=== PATIENT | female | born 1935 | race Caucasian/White ===

== ENCOUNTER 2018-09-04 20:09 | Emergency (ER) | payer OTHER, MEDICARE ==
[2018-09-04 20:27] VITALS: BP 168/82; PULSE 89; TEMP 97.8; BMI 27.4
--- NOTE | 2018-09-04 20:57 | PDOC ---
Attending Attestation - HPI HPI: This patient is an 83 year old female with PMHx of DMII, hypothyroidism, who presents to the ED for choking sensation in throat. Patient states that she was eating leftover turkey pot pie when she felt something lodged in her throat. She states that it occasionally moves and she cant breathe. She states that she is able to tolerate drinking water. 09/04/18 22:03 - Physicial Exam PE: GENERAL: Awake, alert, and fully oriented, in no acute distress HEAD: No signs of trauma EYES: PERRLA, EOMI, sclera anicteric, conjunctiva clear ENT: Auricles normal inspection, hearing grossly normal, nares patent, oropharynx clear without exudates, airway patent, no evidence of foreign object. Moist mucosa NECK: Normal ROM, supple, no lymphadenopathy, JVD, or masses LUNGS: Breath sounds equal, clear to auscultation bilaterally. No wheezes, and no crackles HEART: Regular rate and rhythm, normal S1 and S2, no murmurs, rubs or gallops NEUROLOGICAL: Cranial nerves II through XII grossly intact. Normal speech, normal gait <Jeanette Maya - Last Filed: 09/04/18 22:06> - Resident Resident Name: Den Sharp - Medical Decision Making 09/04/18 22:29 Pt presents to the ED complaining of a foreign body sensation after eating turkey pot pie. States that she has intermittent difficulty breathing, but no difficulty swallowing. Differential includes throat irritation, less likely foreign body, less likely epiglottitis. Will check CT neck to rule out foreign body or epiglottitis. <Rachelle Patel - Last Filed: 09/04/18 22:34> Attestations - Attestations 09/04/18 22:07 Documentation prepared by Jeanette Maya, acting as medical screener for Rachelle Patel MD. <Jeanette Maya - Last Filed: 09/04/18 22:06>
[2018-09-04] MEDS ORDERED: TETRACAINE/BENZOCAINE/BUTAMBEN 20 GM SPR TP ONE (20:59)
--- NOTE | 2018-09-04 21:29 | PDOC ---
History of Present Illness - General Chief Complaint: Choking Sensation Stated Complaint: CHOKING FEELING Time Seen by Provider: 09/04/18 20:48 - History of Present Illness Initial Comments: 09/04/18 21:29 The patient is an 83 year old female with a history of seizures who presents for evaluation of a choking sensation. The patient reports that she was eating left over turkey pot pie from a restaurant when she experienced a choking sensation and a sensation that she could not breath prompting her presentation to the ED for further evaluation. She notes that she feels that there is something moving in her throat that occasionally lodges itself in her airway and she can't breath during those moments. She states that she drank water without difficulty, but notes minimal improvement in her symptoms. She otherwise denies fevers, chills, SOB, chest pain, nausea, vomiting, abdominal pain, or changes with urination or bowel movements. Past History - Past Medical History Allergies/Adverse Reactions: Allergies Allergy/AdvReac Type Severity Reaction Status Date / Time bee venom protein (honey bee) Allergy Verified 09/04/18 20:27 Sulfa (Sulfonamide Allergy Verified 09/04/18 20:27 Antibiotics) COPD: No Seizures: Yes - Suicide/Smoking/Psychosocial Hx Smoking History: Former smoker Have you smoked in the past 12 months: No If you are a former smoker, when did you quit?: 40 years ago Information on smoking cessation initiated: No Review of Systems - Review of Systems Comments:: 09/04/18 21:37 Constitutional: No fevers, chills, fatigue, malaise HEENT: Choking Sensation. No Rhinorrhea, nasal congestion, visual changes Cardiovascular: No chest pain, syncope, palpitations, lightheadedness Respiratory: No Cough, SOB, Hemoptysis, Gastrointestinal: No Abdominal pain, Nausea, Vomiting, Constipation, Diarrhea, Melena Genitourinary: No Dysuria, Frequency, Urgency, Hesitancy, Hematuria, Flank pain Musculoskeletal: No Myalgia, arthralgia Skin: No rashes, itching, bruising, pallor Neurologic: No Headache, Dizziness, Numbness, Weakness, or Tingling Psychiatric: No Hallucinations. No SI or HI *Physical Exam - Vital Signs Last Vital Signs Temp Pulse Resp BP Pulse Ox 97.8 F 89 18 168/82 95 09/04/18 20:23 09/04/18 20:23 09/04/18 20:23 09/04/18 20:23 09/04/18 20:23 - Physical Exam Comments: 09/04/18 21:37 General Appearance: Nourished. No Apparent Distress HEENT: No Pharyngeal Erythema, Tonsillar Exudate, Tonsillar Erythema, or notable foreign body in the pharynx. Neck: No Cervical Lymphadenopathy Respiratory/Chest: Lungs Clear, Normal Breath Sounds. No Crackles, Rales, Rhonchi, Wheezing Cardiovascular: Regular Rhythm, Regular Rate. No Murmur, Gallops, Rubs Gastrointestinal/Abdominal: Normal Bowel Sounds, Soft. No Guarding, Rebound, Tenderness Musculoskeletal: No CVA Tenderness Extremity: Normal Capillary Refill Integumentary: Normal Color, Dry, Warm Neurologic: Fully Oriented, Alert, Normal Mood/Affect, Normal Response, ED Treatment Course - LABORATORY CBC & Chemistry Diagram: 09/04/18 22:00 09/04/18 22:00 Medical Decision Making - Medical Decision Making 09/04/18 21:37 The patient is an 83 year old female with a history of seizures who presents for evaluation of a choking sensation. Given the patient's history and physical exam, it is unlikely that a large food bolus in in the patient's airway. It is possible the patient has irritated her throat causing her symptoms. We will treat the patient with cetacaine and attempt further visualization after treatment. We will continue to monitor and reassess while here in the ED. 09/04/18 22:01 We are unable to visualize further any foreign body in the patient's pharynx. We will obtain a cbc, cmp, and CT neck to evaluate further. We will continue to monitor and reassess while here in the ED. 09/04/18 23:55 CBC, cmp are unremarkable. Patient signed out to the night team pending CT neck and reassessment. *DC/Admit/Observation/Transfer Diagnosis at time of Disposition: Throat pain - Discharge Dispostion Disposition: HOME Condition at time of disposition: Stable - Referrals Referrals: Jayce Delacruz [Primary Care Provider] - Jonas Rae MD [Staff Physician] - - Patient Instructions Printed Discharge Instructions: DI for Choking Episode Additional Instructions: 1) Please follow-up with your primary care doctor and ENT Specialist in the next 1-2 days. Please call tomorrow to schedule a follow up appointment. If you cannot follow up with your doctor within 1 week please return to the Emergency Department for any urgent issues. 2) You were given a copy of the tests performed today. Please bring the results with you and review them with your primary care doctor. Your laboratory / imaging results were normal here in the ER. 3) If you have any worsening of symptoms or any other concerns please return to the ER immediately. Return if worsening symptoms including fevers, headache, vomiting, visual or hearing disturbances, abdominal pain, chest pain, shortness of breath, syncope, dehydration, inability to take things by mouth/vomiting, altered mental status, or worsening concerning symptoms. 4) Please continue taking your home medications as directed. - Post Discharge Activity
[2018-09-04 22:07] LABS: EOS % 3.4 % (0-4.5); HEMATOCRIT 41.4 % (32.4-45.2); LYMPH % 25.9 % (8-40); MCH 32.5 pg (25.7-33.7); MCHC 33.9 g/dl (32.0-36.0); MEAN CELL VOLUME 95.7 fl (80-96); MEAN PLT VOLUME 7.7 fl (7.5-11.1); MONO % 10.7 % (3.8-10.2); PLATELET COUNT 238 K/MM3 (134-434); RBC 4.33 M/mm3 (3.60-5.2); RDW 13.4 % (11.6-15.6); WHITE BLOOD COUNT 7.5 K/mm3 (4.0-10.0)
[2018-09-04 22:43] LABS: ALBUMIN 3.6 g/dl (3.4-5.0); ALK PHOS 73 U/L (45-117); ANION GAP 6 MMOL/L (8-16); BILIRUBIN,TOTAL 0.4 mg/dL (0.2-1); BLOOD UREA NITROGEN 12 mg/dL (7-18); CALCIUM 9.4 mg/dL (8.5-10.1); CHLORIDE 103 mmol/L (98-107); CO2 29 mmol/L (21-32); CREATININE 0.8 mg/dL (0.55-1.3); GLUCOSE,RANDOM 112 mg/dL (74-106); POTASSIUM 4.1 mmol/L (3.5-5.1); SGOT/AST 15 U/L (15-37); SGPT/ALT 21 U/L (13-61); SODIUM 138 mmol/L (136-145); TOT PROT 6.5 g/dl (6.4-8.2)
--- NOTE | 2018-09-05 00:32 | PDOC ---
*Physical Exam - Vital Signs Last Vital Signs Temp Pulse Resp BP Pulse Ox 97.8 F 89 18 168/82 95 09/04/18 20:23 09/04/18 20:23 09/04/18 20:23 09/04/18 20:23 09/04/18 20:23 ED Treatment Course - LABORATORY CBC & Chemistry Diagram: 09/04/18 22:00 09/04/18 22:00 - ADDITIONAL ORDERS Additional order review: Laboratory Results 09/04/18 22:00 Sodium 138 Potassium 4.1 Chloride 103 Carbon Dioxide 29 Anion Gap 6 L BUN 12 Creatinine 0.8 Creat Clearance w eGFR 68.34 Random Glucose 112 H Calcium 9.4 Total Bilirubin 0.4 AST 15 ALT 21 Alkaline Phosphatase 73 Total Protein 6.5 Albumin 3.6 09/04/18 22:00 RBC 4.33 MCV 95.7 MCHC 33.9 RDW 13.4 MPV 7.7 Neutrophils % 59.0 Lymphocytes % 25.9 Monocytes % 10.7 H Eosinophils % 3.4 Basophils % 1.0 - Medications Given in the ED: ED Medications Discontinued Medications Generic Name Dose Route Start Last Admin Trade Name Freq PRN Reason Stop Dose Admin Benzocaine/Butamben/Tetracaine HCl 1 spray 09/04/18 20:59 09/04/18 21:32 Cetacaine [place] - TP 09/04/18 21:00 1 spray ONCE ONE Administration Medical Decision Making - Medical Decision Making Signed out to me for r/o foreign body in the throat. CT negative. Will DC home with ENT follow up. 09/05/18 00:31 *DC/Admit/Observation/Transfer Diagnosis at time of Disposition: Throat pain - Discharge Dispostion Disposition: HOME Condition at time of disposition: Stable - Referrals Referrals: Jayce Delacruz [Primary Care Provider] - Jonas Rae MD [Staff Physician] - - Patient Instructions Printed Discharge Instructions: DI for Choking Episode Additional Instructions: 1) Please follow-up with your primary care doctor and ENT Specialist in the next 1-2 days. Please call tomorrow to schedule a follow up appointment. If you cannot follow up with your doctor within 1 week please return to the Emergency Department for any urgent issues. 2) You were given a copy of the tests performed today. Please bring the results with you and review them with your primary care doctor. Your laboratory / imaging results were normal here in the ER. 3) If you have any worsening of symptoms or any other concerns please return to the ER immediately. Return if worsening symptoms including fevers, headache, vomiting, visual or hearing disturbances, abdominal pain, chest pain, shortness of breath, syncope, dehydration, inability to take things by mouth/vomiting, altered mental status, or worsening concerning symptoms. 4) Please continue taking your home medications as directed. - Post Discharge Activity
== END 2018-09-05 00:42 | disposition home or self-care (01) ==
LOC: JER 20:09
DX: R07.0 Pain in throat (principal); R09.89 Other specified symptoms and signs involving the circulatory and respiratory systems; Z86.69 Personal history of other diseases of the nervous system and sense organs
CPT/HCPCS: 36415; 70491-TC; 80053; 85025; 99282-25

== ENCOUNTER 2020-01-03 14:50 | Emergency (ER) | payer OTHER, MEDICARE ==
[2020-01-03 15:04] VITALS: TEMP 98.5; BMI 28.0
--- NOTE | 2020-01-03 15:23 | PDOC ---
Attending Attestation - Resident Resident Name: ClaudetteAnthony - ED Attending Attestation I have performed the following: I have examined & evaluated the patient, The case was reviewed & discussed with the resident, I agree w/resident's findings & plan, Exceptions are as noted - HPI HPI: 01/03/20 15:11 84YOF with h/o right retinal detachment with repair 7 years ago, recently diagnosed Parkinson's disease (sees Dr. Arvizu, on Levodopa), HTN, HLD, seizures (last seizure in July and tapering down on Keppra recently), and Strep mutans bacteremia this spring for which she was admitted and had ABX via PICC line in July. She was sent into the ED by her decision science analyst today for chronically declining vision but also for an apparent nerve palsy on her examination. The patient herself denies any associated symptoms and any new symptoms today, but notes gradual decline over the past several months. - Physicial Exam PE: 01/03/20 15:27 GENERAL: elderly, nontoxic-appearing, no distress, answers questions appropriately, accompanied by at bedside HEENT: PERRLA, EOMI, moist mucous membranes NECK/BACK: no midline ttp, no spinal stepoff or deformity, no hematoma, full ROM, neck supple CARDIOVASCULAR: regular rate/rhythm, no MGR, strong peripheral pulses, capillary refill <2 seconds, extremities wwp, no edema LUNGS/RESPIRATORY: no respiratory distress, CTAB GI/ABDOMEN: symmetric [id number], normoactive BS, soft, no ttp, no midline pulsatile masses : no CVA tenderness MSK/EXTREMITIES: no acute-appearing muscle atrophy, no acute deformity DERM/SKIN: warm and dry, no pallor, no jaundice, no rash, no pathologic- appearing bruising, no skin breakdown, no cuts, no lesions NEUROLOGICAL: GCS 15, CN II-XII grossly intact except the patient is unable to abduct the right eye completely, 5/5 strength proximally and distally, no facial droop, gait is unstable and patient needs assistance walking but states this is her chronic baseline - Medical Decision Making 84YOF p/w chronic unchanged double vision and chronic insidiously worsening vision loss. H/O Parkinson's syndrome on medication, sees Dr. Arvizu. Initial Vital Signs Temp Pulse Resp BP Pulse Ox 98.5 F 72 19 178/89 H 97 01/03/20 14:54 01/03/20 14:54 01/03/20 14:54 01/03/20 14:54 01/03/20 14:54 Most likely chronic issue without acute change, likely clinical course expected from Parkinson's. Less likely but still considered in cases like this are CN palsy, and thus will get CTH. Will also get basic labs and some specific labs as requested by Dr. Arvizu (resident Dr. Wilkins speaks with Dr. Arvizu regarding this patient's case). Patient not requesting any medication, not in any discomfort, denies any new changes. Provider Orders Category Date Time Status HEAD CT WITHOUT CONTRAST [CT] Stat CT Scan 01/03/20 15:38 Completed ELECTROCARDIOGRAM [CARD] Stat Cardiology 01/03/20 15:38 Ordered Cardiac Monitoring Continuous Care 01/03/20 15:39 Active EKG needed NOW Care 01/03/20 15:39 Completed Isolation Precautions As directed Care 01/03/20 16:04 Active C-REACTIVE PROTEIN Stat Lab 01/03/20 16:15 Completed CBC WITH DIFFERENTIAL Stat Lab 01/03/20 16:15 Completed COMP METABOLIC PANEL Stat Lab 01/03/20 16:15 Completed COVID-19 Stat Lab 01/03/20 16:15 Received ERYTHROCYTE SEDIMENTATION RATE Stat Lab 01/03/20 16:15 Completed FREE T4 Stat Lab 01/03/20 16:15 Completed HEMOGLOBIN A1C Stat Lab 01/03/20 16:15 Completed LIPID PROFILE ([facility]) Stat Lab 01/03/20 16:15 Completed MAGNESIUM Stat Lab 01/03/20 16:15 Completed PT/INR (PROTHROMBIN TIME) Stat Lab 01/03/20 16:15 Completed THYROID STIMULATING HORMONE Stat Lab 01/03/20 16:15 Completed TROPONIN I (DFP) Stat Lab 01/03/20 16:15 Completed UA ([facility] ONLY) Stat Lab 01/03/20 16:15 Completed URINE MICROSCOPIC (MAR) Stat Lab 01/03/20 16:15 Completed VITAMIN B12 Stat Lab 01/03/20 16:15 Completed Urine Culture [URINE CULTURE] Stat Micro 01/03/20 16:15 Received IV Insert NOW Phy Order 01/03/20 15:37 Active Lab Results WBC 6.9 K/mm3 (4.0-10.8) 01/03/20 16:15 RBC 4.41 M/mm3 (3.60-5.2) 01/03/20 16:15 Hgb 14.5 GM/dl (10.7-15.3) 01/03/20 16:15 Hct 42.9 % (32.4-45.2) 01/03/20 16:15 MCV 97.3 fl (80-96) H 01/03/20 16:15 MCH 32.8 pg (25.7-33.7) 01/03/20 16:15 MCHC 33.8 g/dl (32.0-36.0) 01/03/20 16:15 RDW 13.1 % (11.6-15.6) 01/03/20 16:15 Plt Count 260 K/MM3 (134-434) 01/03/20 16:15 MPV 8.3 fl (7.5-11.1) 01/03/20 16:15 Absolute Neuts (auto) 3.9 K/mm3 01/03/20 16:15 Neutrophils % 57.4 % (42.8-82.8) 01/03/20 16:15 Lymphocytes % 28.9 % (8-40) 01/03/20 16:15 Monocytes % 9.9 % (3.8-10.2) 01/03/20 16:15 Eosinophils % 2.8 % (0-4.5) 01/03/20 16:15 Basophils % 1.0 % (0-2.0) 01/03/20 16:15 ESR 6 mm/hr (0-30) 01/03/20 16:15 PT with INR 12.5 SEC (10.2-13.0) 01/03/20 16:15 INR 1.12 (0.82-1.09) 01/03/20 16:15 Sodium 136 mmol/L (136-145) 01/03/20 16:15 Potassium 3.8 mmol/L (3.5-5.1) 01/03/20 16:15 Chloride 99 mmol/L (98-107) 01/03/20 16:15 Carbon Dioxide 27 mmol/L (21-32) 01/03/20 16:15 Anion Gap 10 MMOL/L (8-16) 01/03/20 16:15 BUN 13.0 mg/dl (7-18) 01/03/20 16:15 Creatinine 0.8 mg/dl (0.55-1.3) 01/03/20 16:15 Est GFR (CKD-EPI)AfAm 77.92 01/03/20 16:15 Est GFR (CKD-EPI)NonAf 67.23 01/03/20 16:15 Random Glucose 106 mg/dl (74-106) 01/03/20 16:15 Hemoglobin A1c % 5.8 % (4.2-6.3) 01/03/20 16:15 Calcium 9.6 mg/dl (8.5-10) 01/03/20 16:15 Magnesium 2.0 mg/dL (1.8-2.4) 01/03/20 16:15 Total Bilirubin 1.0 mg/dl (0.2-1) 01/03/20 16:15 AST 19 U/L (15-37) 01/03/20 16:15 ALT 6 U/L (13-61) L 01/03/20 16:15 Alkaline Phosphatase 54 U/L (45-117) 01/03/20 16:15 Troponin I < 0.03 ng/ml (0.00-0.05) 01/03/20 16:15 C-Reactive Protein < 0.3 MG/DL (0.00-0.3) 01/03/20 16:15 Total Protein 6.4 g/dl (6.4-8.2) 01/03/20 16:15 Albumin 3.8 g/dl (3.4-5.0) 01/03/20 16:15 Triglycerides 69 mg/dl (0-150) 01/03/20 16:15 Cholesterol 153 mg/dl (50-200) 01/03/20 16:15 Total LDL Cholesterol 72 mg/dl (5-100) 01/03/20 16:15 HDL Cholesterol 67 mg/dl (40-60) H 01/03/20 16:15 Vitamin B12 1998 pg/ml (193-986) H 01/03/20 16:15 TSH 0.75 uIU/ml (0.358-3.74) 01/03/20 16:15 Free T4 1.16 ng/dl (0.76-1.46) 01/03/20 16:15 Urine Color Yellow 01/03/20 16:15 Urine Appearance Clear 01/03/20 16:15 Urine pH 5.5 (4.5-8) 01/03/20 16:15 Urine Protein Negative (NEGATIVE) 01/03/20 16:15 Urine Glucose (UA) Negative (NEGATIVE) 01/03/20 16:15 Urine Ketones Negative (NEGATIVE) 01/03/20 16:15 Urine Blood Trace-intact (NEGATIVE) 01/03/20 16:15 Urine Nitrite Negative (NEGATIVE) 01/03/20 16:15 Urine Bilirubin Negative (NEGATIVE) 01/03/20 16:15 Urine Urobilinogen 0.2 (0.2-1.0) 01/03/20 16:15 Ur Leukocyte Esterase Negative (NEGATIVE) 01/03/20 16:15 Urine RBC 2--5 /hpf (0-4) 01/03/20 16:15 Urine WBC 0-2 (NEGATIVE) 01/03/20 16:15 Ur Transition Epith Cell Few /hpf 01/03/20 16:15 Urine Bacteria Few /hpf (NEGATIVE) 01/03/20 16:15 CTH: chronic changes but nothing acute. The patient is appropriate for close outpatient neurology and PCP follow-up. She already has appointment with Dr. Arvizu for this week. Specific return precautions are discussed and disposition completed by Dr. Wilkins. Heart Score/ECG Review #1 Sinus rhythm, rate 81, one PAC, normal axis and intervals, isolated TWI in III, otherwise no ST-T changes. Discharge - Discharge Information Problems reviewed: Yes Clinical Impression/Diagnosis: Diplopia, Parkinsons disease Condition: Stable Disposition: HOME - Admission No - Follow up/Referral Referrals: Jayce Delacruz [Primary Care Provider] - Gómez Arvizu MD [Staff Physician] - - Patient Discharge Instructions Patient Printed Discharge Instructions: DI for Headache, DI for Double Vision Additional Instructions: You were seen in the emergency department for the evaluation of your visual disturbances. We spoke to Dr. Arvizu who states that you can be followed up with him this Thursday for your appointment at 10am. PLease follow up with that appointment, If you have worsening symptoms or new concerning symptoms, please return to the emergency department immediately. Thank you. - Post Discharge Activity
--- NOTE | 2020-01-03 15:50 | PDOC ---
History of Present Illness - General Chief Complaint: Pain, Acute Stated Complaint: SENT BY [facility] FOR SCALP TENDERNESS Time Seen by Provider: 01/03/20 15:10 History Source: Patient Exam Limitations: No Limitations - History of Present Illness Initial Comments: 84 yo F with history of right retinal detachment with repair (approximately over 7 years ago), Parkinson's Disease (diagnosed within past 6 months; currently on Levodopa), HTN, HLD, seizures (last seizure in July with tapering of Keppra), and hx of strep mutans bacteremia presents to the emergency department upon referral by her spinner cap frame for concerns for giant cell arteritis and left trochlear nerve palsy. Per the patient, she states she has been having double vision for the past 3 years with worsening that has occurred since September 2019. The patient states she has had chronic decline in vision that has been ongoing for the past 3 years. The patient denies FND and denies the following: recent head trauma, fevers, chills, ears/nose/throat pain, chest pain, SOB, nausea, vomiting, lightheadedness, dizziness, back pain, and neck pain. She states her double vision occurs whenever she moves her eyes and is unsure of the direction that induces it. Past History - Medical History Allergies/Adverse Reactions: Allergies Allergy/AdvReac Type Severity Reaction Status Date / Time bee venom protein (honey bee) Allergy Verified 01/03/20 15:50 Sulfa (Sulfonamide Allergy Verified 01/03/20 15:50 Antibiotics) Home Medications: Ambulatory Orders Atorvastatin Ca [Lipitor] 10 mg PO DAILY 07/29/19 Metoprolol Succinate 25 mg PO DAILY 07/29/19 Ramipril [Altace] 10 mg PO DAILY 30 Days #60 capsule 08/03/19 Aspirin [ASA -] 81 mg PO DAILY 01/03/20 Carbidopa/Levodopa 25/100 [Sinemet 25/100 -] 1 each PO TID 01/03/20 levETIRAcetam [Keppra -] 250 mg PO BID 01/03/20 Cancer: No CVA: No COPD: No Seizures: Yes Other medical history: PARKINSONS - Reproductive History Is Patient Now?: No - Immunization History Immunization Up to Date: (Unknown) - Psycho-Social/Smoking History Smoking History: Former smoker Have you smoked in the past 12 months: No Number of Cigarettes Smoked Daily: 2 If you are a former smoker, when did you quit?: 40 years ago Information on smoking cessation initiated: No - Substance Abuse Hx (Audit-C & DAST Scrn) How often the patient has a drink containing alcohol: Never Score: In Men: 4 or > Positive; In Women: 3 or > Positive: 0 Screen Result (Pos requires Nsg. Audit-10AR): Negative In the last yr the pt used illegal drug/Rx for NonMed reason: No Score: Yes response is considered Positive: 0 Screen Result (Positive result requires Nsg. DAST-10): Negative Review of Systems - Review of Systems Able to Perform ROS?: Yes Is the patient limited Maltese proficient: No Constitutional: No: Chills, Diaphoresis, Fever, Weakness HEENTM: Yes: Double Vision. No: Eye Pain, Tearing, Recent change in vision, Ear Pain, Ear Discharge, Nose Pain, Tinnitus, Throat Pain, Mouth Pain Respiratory: No: Cough, Shortness of Breath, Wheezing Cardiac (ROS): No: Chest Pain, Lightheadedness, Palpitations ABD/GI: No: Constipated, Diarrhea, Nausea, Rectal Bleeding, Vomiting, Tarry Stools : No: Burning, Dysuria, Hematuria Musculoskeletal: No: Back Pain, Joint Pain, Neck Pain Integumentary: No: Erythema, Lesions, Pruritus, Rash Neurological: No: Headache Psychiatric: No: Change in Appetite Endocrine: No: Unexplained Weight Loss Hematologic/Lymphatic: No: Anemia *Physical Exam - Vital Signs Last Vital Signs Temp Pulse Resp BP Pulse Ox 98.5 F 72 19 178/89 H 97 01/03/20 14:54 01/03/20 14:54 01/03/20 14:54 01/03/20 14:54 01/03/20 14:54 - Physical Exam General Appearance: Yes: Nourished, Appropriately Dressed. No: Apparent Distress, Intoxicated HEENT: positive: EOMI, ROBERTO, Normal ENT Inspection, Normal Voice, Symmetrical, TMs Normal, Pharynx Normal, Hearing Grossly Normal. negative: Pale Conjunctivae, Scleral Icterus (R), Scleral Icterus (L), Muffled/Hoarse voice, Pharyngeal Erythema, Tonsillar Exudate, Tonsillar Erythema, Excessive drooling Neck: positive: Trachea midline, Supple. negative: Tender, Lymphadenopathy (R), Lymphadenopathy (L) Respiratory/Chest: positive: Lungs Clear, Normal Breath Sounds. negative: Chest Tender, Respiratory Distress, Accessory Muscle Use Cardiovascular: positive: Regular Rhythm, Regular Rate, S1, S2. negative: Systolic Murmur Gastrointestinal/Abdominal: positive: Normal Bowel Sounds, Flat, Soft. negative: Tender Lymphatic: negative: Adenopathy Musculoskeletal: positive: Normal Inspection. negative: CVA Tenderness, Vertebral Tenderness Extremity: positive: Normal Capillary Refill, Normal Inspection, Normal Range of Motion. negative: Tender Integumentary: positive: Normal Color, Dry, Warm. negative: Pale, Cold, Clammy Neurologic: positive: Fully Oriented, Alert, Normal Mood/Affect, Normal Response, Motor Strength 5/5, EOM Palsy (unable to adduct and look vertical in right eye consistent with possible 4th cranial nerve palsy. ), Finger to Nose (intact bilaterally), Other (right eye 20/70 and left eye 20/100). 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), Facial Droop, Numbness, Sensory Deficit, Confused, Disoriented ED Treatment Course - LABORATORY CBC & Chemistry Diagram: 01/03/20 16:15 01/03/20 16:15 - RADIOLOGY Radiology Studies Ordered: Category Date Time Status HEAD CT WITHOUT CONTRAST [CT] Stat CT Scan 01/03/20 15:38 Ordered Medical Decision Making - Medical Decision Making 01/03/20 17:50 84 yo F with history of right retinal detachment with repair (approximately over 7 years ago), Parkinson's Disease (diagnosed within past 6 months; currently on Levodopa), HTN, HLD, seizures (last seizure in July with tapering of Keppra), and hx of strep mutans bacteremia presents to the emergency department upon referral by her spinner cap frame for concerns for giant cell arteritis and left trochlear nerve palsy Initial vitals: Initial Vital Signs Temp Pulse Resp BP Pulse Ox 98.5 F 72 19 178/89 H 97 01/03/20 14:54 01/03/20 14:54 01/03/20 14:54 01/03/20 14:54 01/03/20 14:54 Work up: 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 ddx includes HTN, DM, CVA, congenital, sequela of Parkinson, and traumatic. patient denies recent trauma or within the past year to the head. The patient states she does have HTN, but denies hx of DM. Neurology was called (Dr. Arvizu) who is the patient's neurologist. per Dr. Arvizu, the patient could have this palsy secondary to Parkinsons disease vs congenital exacerbated with age. the patient has an appointment for this Thursday at 10 am and states its unnecessary to admit. The patient has had symptoms for a few months, making this an unlikely acute stroke. will rule out giant cell arteritis with crp and ESR with patient to be anticipated discharge with follow up with Dr. Arvizu. per Dr. Arvizu, he requested TSH, free t4, and vitamin b12 for her upcoming appointment Laboratory Tests 01/03/20 01/03/20 01/03/20 16:15 16:15 16:15 WBC 6.9 RBC 4.41 Hgb 14.5 Hct 42.9 MCV 97.3 H MCH 32.8 MCHC 33.8 RDW 13.1 Plt Count 260 MPV 8.3 Absolute Neuts (auto) 3.9 Neutrophils % 57.4 Lymphocytes % 28.9 Monocytes % 9.9 Eosinophils % 2.8 Basophils % 1.0 ESR 6 PT with INR 12.5 INR 1.12 Sodium 136 Potassium 3.8 Chloride 99 Carbon Dioxide 27 Anion Gap 10 BUN 13.0 Creatinine 0.8 Est GFR (CKD-EPI)AfAm 77.92 Est GFR (CKD-EPI)NonAf 67.23 Random Glucose 106 Calcium 9.6 Magnesium 2.0 Total Bilirubin 1.0 AST 19 ALT 6 L Alkaline Phosphatase 54 Troponin I Total Protein 6.4 Albumin 3.8 Triglycerides 69 Cholesterol 153 Total LDL Cholesterol 72 HDL Cholesterol 67 H Urine Color Urine Appearance Urine pH Urine Protein Urine Glucose (UA) Urine Ketones Urine Blood Urine Nitrite Urine Bilirubin Urine Urobilinogen Ur Leukocyte Esterase Urine RBC Urine WBC Ur Transition Epith Cell Urine Bacteria 01/03/20 01/03/20 16:15 16:15 WBC RBC Hgb Hct MCV MCH MCHC RDW Plt Count MPV Absolute Neuts (auto) Neutrophils % Lymphocytes % Monocytes % Eosinophils % Basophils % ESR PT with INR INR Sodium Potassium Chloride Carbon Dioxide Anion Gap BUN Creatinine Est GFR (CKD-EPI)AfAm Est GFR (CKD-EPI)NonAf Random Glucose Calcium Magnesium Total Bilirubin AST ALT Alkaline Phosphatase Troponin I < 0.03 Total Protein Albumin Triglycerides Cholesterol Total LDL Cholesterol HDL Cholesterol Urine Color Yellow Urine Appearance Clear Urine pH 5.5 Urine Protein Negative Urine Glucose (UA) Negative Urine Ketones Negative Urine Blood Trace-intact Urine Nitrite Negative Urine Bilirubin Negative Urine Urobilinogen 0.2 Ur Leukocyte Esterase Negative Urine RBC 2--5 Urine WBC 0-2 Ur Transition Epith Cell Few Urine Bacteria Few Laboratory Tests 01/03/20 01/03/20 01/03/20 16:15 16:15 16:15 WBC 6.9 RBC 4.41 Hgb 14.5 Hct 42.9 MCV 97.3 H MCH 32.8 MCHC 33.8 RDW 13.1 Plt Count 260 MPV 8.3 Absolute Neuts (auto) 3.9 Neutrophils % 57.4 Lymphocytes % 28.9 Monocytes % 9.9 Eosinophils % 2.8 Basophils % 1.0 ESR 6 PT with INR 12.5 INR 1.12 Sodium 136 Potassium 3.8 Chloride 99 Carbon Dioxide 27 Anion Gap 10 BUN 13.0 Creatinine 0.8 Est GFR (CKD-EPI)AfAm 77.92 Est GFR (CKD-EPI)NonAf 67.23 Random Glucose 106 Calcium 9.6 Magnesium 2.0 Total Bilirubin 1.0 AST 19 ALT 6 L Alkaline Phosphatase 54 Troponin I C-Reactive Protein < 0.3 Total Protein 6.4 Albumin 3.8 Triglycerides 69 Cholesterol 153 Total LDL Cholesterol 72 HDL Cholesterol 67 H Urine Color Urine Appearance Urine pH Urine Protein Urine Glucose (UA) Urine Ketones Urine Blood Urine Nitrite Urine Bilirubin Urine Urobilinogen Ur Leukocyte Esterase Urine RBC Urine WBC Ur Transition Epith Cell Urine Bacteria 01/03/20 01/03/20 16:15 16:15 WBC RBC Hgb Hct MCV MCH MCHC RDW Plt Count MPV Absolute Neuts (auto) Neutrophils % Lymphocytes % Monocytes % Eosinophils % Basophils % ESR PT with INR INR Sodium Potassium Chloride Carbon Dioxide Anion Gap BUN Creatinine Est GFR (CKD-EPI)AfAm Est GFR (CKD-EPI)NonAf Random Glucose Calcium Magnesium Total Bilirubin AST ALT Alkaline Phosphatase Troponin I < 0.03 C-Reactive Protein Total Protein Albumin Triglycerides Cholesterol Total LDL Cholesterol HDL Cholesterol Urine Color Yellow Urine Appearance Clear Urine pH 5.5 Urine Protein Negative Urine Glucose (UA) Negative Urine Ketones Negative Urine Blood Trace-intact Urine Nitrite Negative Urine Bilirubin Negative Urine Urobilinogen 0.2 Ur Leukocyte Esterase Negative Urine RBC 2--5 Urine WBC 0-2 Ur Transition Epith Cell Few Urine Bacteria Few CRP is <0.3 and ESR is negative. Will discharge the patient with follow up with neurology. Dispo: Discharge. I advised the patient not to operate heavy machinery including operating an automobile until she is evaluated by neurology. 01/03/20 18:00 01/03/20 18:08 Discharge - Discharge Information Problems reviewed: Yes Clinical Impression/Diagnosis: Diplopia Condition: Stable Disposition: HOME - Admission No - Follow up/Referral Referrals: Jayce Delacruz [Primary Care Provider] - Gómez Arvizu MD [Staff Physician] - - Patient Discharge Instructions Patient Printed Discharge Instructions: DI for Headache, DI for Double Vision Additional Instructions: You were seen in the emergency department for the evaluation of your visual disturbances. We spoke to Dr. Arvizu who states that you can be followed up with him this Thursday for your appointment at 10am. PLease follow up with that appointment, If you have worsening symptoms or new concerning symptoms, please return to the emergency department immediately. Thank you. - Post Discharge Activity
[2020-01-03 16:36] LABS: EOS % 2.8 % (0-4.5); HEMATOCRIT 42.9 % (32.4-45.2); HEMOGLOBIN 14.5 GM/dl (10.7-15.3); LYMPH % 28.9 % (8-40); MCH 32.8 pg (25.7-33.7); MCHC 33.8 g/dl (32.0-36.0); MEAN CELL VOLUME 97.3 fl (80-96); MEAN PLT VOLUME 8.3 fl (7.5-11.1); MONO % 9.9 % (3.8-10.2); NEUT % 57.4 % (42.8-82.8); PLATELET COUNT 260 K/MM3 (134-434); RBC 4.41 M/mm3 (3.60-5.2); RDW 13.1 % (11.6-15.6); WHITE BLOOD COUNT 6.9 K/mm3 (4.0-10.8)
[2020-01-03 16:48] LABS: INR 1.12 (0.82-1.09); PROTHROMBIN TIME (PATIENT) 12.5 SEC (10.2-13.0)
[2020-01-03 16:59] LABS: ALBUMIN 3.8 g/dl (3.4-5.0); ALK PHOS 54 U/L (45-117); ANION GAP 10 MMOL/L (8-16); CALCIUM 9.6 mg/dl (8.5-10); CHLORIDE 99 mmol/L (98-107); CHOLESTEROL 153 mg/dl (50-200); CO2 27 mmol/L (21-32); CREATININE 0.8 mg/dl (0.55-1.3); GLUCOSE,RANDOM 106 mg/dl (74-106); HDL CHOLESTEROL 67 mg/dl (40-60); LDL CHOLESTEROL (ONLY DFH) 72 mg/dl (5-100); POTASSIUM 3.8 mmol/L (3.5-5.1); SGOT/AST 19 U/L (15-37); SGPT/ALT 6 U/L (13-61); SODIUM 136 mmol/L (136-145); TOT PROT 6.4 g/dl (6.4-8.2); TRIGLYCERIDES 69 mg/dl (0-150)
[2020-01-03 17:07] LABS: EPITHELIAL CELLS FEW /hpf
[2020-01-03 17:16] VITALS: BP 178/83; PULSE 71
[2020-01-03 17:19] LABS: ERYTHROCYTE SEDIMENTATION RATE 6 mm/hr (0-30)
--- NOTE | 2020-01-04 13:10 | EKG ---
Test Reason : Blood Pressure : / mmHG Vent. Rate : 081 BPM Atrial Rate : 081 BPM P-R Int : 140 ms QRS Dur : 078 ms QT Int : 392 ms P-R-T Axes : 046 031 040 degrees QTc Int : 455 ms SINUS RHYTHM WITH PREMATURE ATRIAL COMPLEXES NONSPECIFIC ST AND T WAVE ABNORMALITY ABNORMAL ECG WHEN COMPARED WITH ECG OF 08-AUG-2019 03:45, NONSPECIFIC T WAVE ABNORMALITY NOW EVIDENT IN LATERAL LEADS Confirmed by MD CAIN, MICHAEL ([id number]) on 01/04/2020 1:10:04 PM Referred By: DR BOYER Confirmed By:MICHAEL BARLOW MD
== END 2020-01-03 18:12 | disposition home or self-care (01) ==
LOC: FER 14:50
DX: H53.2 Diplopia (principal)
CPT/HCPCS: 36415; 70450-TC; 80053; 80061; 81003; 81015; 82607; 83036; 83735; 84439; 84443; 84484; 85025; 85610; 85651; 86140; 87086; 93005; 99285-25; U0003

== ENCOUNTER 2020-06-05 09:26 | Inpatient (IN) | payer OTHER, MEDICARE ==
[2020-06-05] MEDS ORDERED: LORazepam 2 MG/ML SDV VIAL ONE ×4 (09:29→10:22)
[2020-06-05 09:47] VITALS: BMI 30.9
[2020-06-05] MEDS ORDERED: LORazepam 2 MG/ML SDV VIAL IVPUSH ONE ×2 (09:55→10:22)
[2020-06-05] MEDS ORDERED: SODIUM CHLORIDE 2,449 ML IV ONE (09:55)
[2020-06-05] MEDS ORDERED: levETIRAcetam 500 MG/5 ML INJECTION VIAL IVPB ONE ×4 (09:56→23:13)
[2020-06-05] MEDS ORDERED: ACETAMINOPHEN 1000 MG/100 ML VIAL (NON FORMULARY) IVPB ONE (09:57)
[2020-06-05] MEDS ORDERED: METOPROLOL TARTRATE 5 MG/5 ML VIAL IVPUSH ONE (10:15)
[2020-06-05] MEDS ORDERED: METOPROLOL TARTRATE 5 MG/5 ML VIAL ONE (10:21)
[2020-06-05] MEDS ORDERED: ACETAMINOPHEN INJECTION 100 ML IVPB ONE (10:33)
[2020-06-05 10:41] LABS: BASO % 0.6 % (0-2.0); EOS % 0.4 % (0-4.5); HEMATOCRIT 45.7 % (32.4-45.2); LYMPH % 19.4 % (8-40); MCH 31.8 pg (25.7-33.7); MCHC 32.8 g/dl (32.0-36.0); MEAN PLT VOLUME 9.1 fl (7.5-11.1); MONO % 5.7 % (3.8-10.2); NEUT % 73.9 % (42.8-82.8); PLATELET COUNT 299 K/MM3 (134-434); RBC 4.71 M/mm3 (3.60-5.2); RDW 13.7 % (11.6-15.6); WHITE BLOOD COUNT 10.4 K/mm3 (4.0-10.0)
[2020-06-05 10:51] LABS: INR 0.95 (0.83-1.09); PROTHROMBIN TIME (PATIENT) 11.7 SEC (9.7-13.0)
[2020-06-05 10:53] LABS: ACTIVATED PTT 24.7 SECONDS (25.2-36.5)
[2020-06-05 11:00] LABS: CHLORIDE 101 mmol/L (98-107); POTASSIUM 4.4 mmol/L (3.5-5.1); SODIUM 135 mmol/L (136-145)
[2020-06-05 11:00] LABS: VENOUS BASE EXCESS -9.6 mmol/L (-2-2); VENOUS O2 SATURATION 90.2 % (70-80); VENOUS PCO2 35.7 mmHg (38-52); VENOUS PH 7.275 (7.310-7.410)
[2020-06-05 11:02] LABS: ALBUMIN 3.8 g/dl (3.4-5.0); CALCIUM 9.4 mg/dL (8.5-10.1)
[2020-06-05 11:03] LABS: ANION GAP 11 MMOL/L (8-16); CO2 23 mmol/L (21-32); GLUCOSE,RANDOM 199 mg/dL (74-106)
[2020-06-05 11:06] LABS: CREATININE 1.1 mg/dL (0.55-1.3); SGOT/AST 23 U/L (15-37); SGPT/ALT 22 U/L (13-61)
[2020-06-05 11:07] LABS: BILIRUBIN,TOTAL 0.6 mg/dL (0.2-1); TOT PROT 7.1 g/dl (6.4-8.2)
[2020-06-05 11:08] LABS: ALK PHOS 73 U/L (45-117)
[2020-06-05 11:32] LABS: EPI CELLS >36 /uL (0-25.1); HYALINE CASTS 4 /uL (0-3.1); PH,URINE 6.5 (5.0-8.0); URINE APPEARANCE CLOUDY; URINE BACTERIA 262 /uL (0-1359); URINE BILIRUBIN NEGATIVE (NEGATIVE); URINE COLOR YELLOW; URINE GLUCOSE (UA) TRACE (NEGATIVE); URINE KETONE NEGATIVE (NEGATIVE); URINE LEUK ESTERASE NEGATIVE (NEGATIVE); URINE NITRITE NEGATIVE (NEGATIVE); URINE PROTEIN 3+ (NEGATIVE); URINE RBC 23 /uL (0-23.9); URINE UROBILINOGEN 0.2 mg/dL (0.2-1.0); URINE WBC 7 /uL (0-25.8)
[2020-06-05] MEDS ORDERED: hydrALAZINE HCL 20 MG/ML VIAL ONE (11:42)
[2020-06-05] MEDS ORDERED: hydrALAZINE HCL 20 MG/ML VIAL IVPUSH ONE (11:42)
[2020-06-05] MEDS ORDERED: CEFTRIAXONE 1,000 MG in DEXTROSE 5%-WATER - 50 ML IVPB ONE (12:29)
[2020-06-05] MEDS ORDERED: AZITHROMYCIN IVPB 500 MG in DEXTROSE 5%-WATER - 250 ML IVPB ONE (12:29)
[2020-06-05] MEDS ORDERED: CEFTRIAXONE 1 GM/50 ML BAG ONE (12:31)
[2020-06-05] MEDS ORDERED: AZITHROMYCIN IVPB 500 MG/250 ML BAG IVPB ONE (12:32)
[2020-06-05] MEDS ORDERED: SODIUM CHLORIDE 1,000 ML IV SCH (14:30)
[2020-06-05 17:29] LABS: URINE LEUK ESTERASE NEGATIVE (NEGATIVE)
[2020-06-05 17:30] LABS: PH,URINE 7.5 (5.0-8.0); URINE APPEARANCE CLEAR; URINE BILIRUBIN NEGATIVE (NEGATIVE); URINE GLUCOSE (UA) NEGATIVE (NEGATIVE); URINE KETONE NEGATIVE (NEGATIVE); URINE NITRITE NEGATIVE (NEGATIVE); URINE PROTEIN 2+ (NEGATIVE); URINE UROBILINOGEN 0.2 mg/dL (0.2-1.0)
[2020-06-05 17:31] LABS: URINE COLOR YELLOW
[2020-06-05 17:35] LABS: ARTERIAL BLOOD GAS BASE EXCESS 1.5 mmol/L (-2-2); ARTERIAL BLOOD GAS PO2 106.5 mmHg (80-100); ARTERIAL BLOOD GAS pH 7.439 (7.350-7.450)
[2020-06-05 17:37] LABS: ALLENS TEST POSITIVE
[2020-06-05 17:39] LABS: VENT MODE A/C
[2020-06-05] MEDS ORDERED: ACETAMINOPHEN 1000 MG/100 ML VIAL (NON FORMULARY) IVPB PRN (18:56)
[2020-06-05 19:57] LABS: URINE RBC 0-3 /hpf (0-4); URINE WBC 0-3 (NEGATIVE)
[2020-06-05 19:58] LABS: URINE BACTERIA FEW /hpf (NEGATIVE)
[2020-06-05] MEDS ORDERED: HEPARIN NA (PORCINE) 5,000 UNITS/ML 1ML VIAL ONE (23:13)
[2020-06-05] MEDS: HEPARIN NA (PORCINE) 5,000 UNITS/ML 1ML VIAL SQ SCH (23:28)
[2020-06-05] MEDS: levETIRAcetam 500 MG/5 ML INJECTION VIAL IVPB SCH (23:28)
[2020-06-06] MEDS ORDERED: HEPARIN NA (PORCINE) 5,000 UNITS/ML 1ML VIAL ONE (06:43)
[2020-06-06] MEDS: HEPARIN NA (PORCINE) 5,000 UNITS/ML 1ML VIAL SQ SCH ×3 (06:49→21:14)
[2020-06-06 07:53] LABS: HEMATOCRIT 41.9 % (32.4-45.2); MCH 32.2 pg (25.7-33.7); MCHC 33.4 g/dl (32.0-36.0); MEAN CELL VOLUME 96.4 fl (80-96); MEAN PLT VOLUME 8.8 fl (7.5-11.1); PLATELET COUNT 193 K/MM3 (134-434); RBC 4.34 M/mm3 (3.60-5.2); RDW 13.4 % (11.6-15.6); WHITE BLOOD COUNT 10.2 K/mm3 (4.0-10.0)
[2020-06-06 08:08] LABS: BLOOD UREA NITROGEN 7.3 mg/dL (7-18); CALCIUM 8.6 mg/dL (8.5-10.1); MAGNESIUM 1.9 mg/dL (1.8-2.4)
[2020-06-06] MEDS ORDERED: POTASSIUM CHLORIDE ORAL LIQUID 20 MEQ/15 ML PO ONE (08:10)
[2020-06-06 08:12] LABS: CREATININE 0.6 mg/dL (0.55-1.3); PHOSPHOROUS 1.8 mg/dL (2.5-4.9)
[2020-06-06] MEDS ORDERED: POTASSIUM CHLORIDE ORAL LIQUID 20 MEQ/15 ML ONE (08:56)
[2020-06-06] MEDS ORDERED: KCL 10 MEQ IVPB 10 MEQ/100 ML INFUS.BAG IVPB ONE ×3 (08:56→11:50)
[2020-06-06] MEDS: KCL 10 MEQ IVPB 10 MEQ/100 ML INFUS.BAG IVPB SCH ×3 (09:12→12:35)
[2020-06-06] MEDS ORDERED: POTASSIUM CHLORIDE 20 MEQ PREMIX IVPB 100 ML IVPB ONE (10:15)
[2020-06-06] MEDS ORDERED: CEFTRIAXONE 1 GM/50 ML BAG ONE (10:38)
[2020-06-06] MEDS ORDERED: levETIRAcetam 500 MG/5 ML INJECTION VIAL IVPB ONE (10:38)
[2020-06-06] MEDS ORDERED: AZITHROMYCIN IVPB 500 MG/250 ML BAG IVPB ONE (10:39)
[2020-06-06] MEDS: levETIRAcetam 500 MG/5 ML INJECTION VIAL IVPB SCH ×2 (10:50→21:14)
[2020-06-06] MEDS: CEFTRIAXONE 1 GM in DEXTROSE 5%-WATER - 50 ML IVPB SCH (11:13)
[2020-06-06] MEDS: AZITHROMYCIN IVPB 250 MG in DEXTROSE 5%-WATER - 250 ML IVPB SCH (11:46)
[2020-06-06] MEDS ORDERED: metoPROLOL SUCCINATE 25 MG TAB.SR.24H (FP) PO SCH (12:15)
[2020-06-06] MEDS ORDERED: RAMIPRIL 5 MG CAPSULE PO SCH (12:15)
[2020-06-06] MEDS ORDERED: DEXTROSE 5%-LACTATED RINGERS 1,000 ML IV SCH (12:30)
[2020-06-06] MEDS ORDERED: NAPH,MB-DB/K PH,MBDB POWDER PACKET ONE (12:36)
[2020-06-06] MEDS: NAPH,MB-DB/K PH,MBDB POWDER PACKET PO SCH ×2 (12:40→21:14)
[2020-06-06] MEDS ORDERED: NITROGLYCERIN SUBLINGUAL 1/150 0.4 MG TAB ONE (21:12)
[2020-06-06] MEDS: CARBIDOPA/LEVODOPA 25/100 TABLET (FP) PO SCH (21:13)
[2020-06-07] MEDS: HEPARIN NA (PORCINE) 5,000 UNITS/ML 1ML VIAL SQ SCH ×3 (05:22→22:46)
[2020-06-07] MEDS: CARBIDOPA/LEVODOPA 25/100 TABLET (FP) PO SCH (05:23)
[2020-06-07 09:35] LABS: EOS % 3.8 % (0-4.5); HEMATOCRIT 40.1 % (32.4-45.2); HEMOGLOBIN 13.7 GM/dL (10.7-15.3); LYMPH % 25.7 % (8-40); MCH 32.4 pg (25.7-33.7); MCHC 34.1 g/dl (32.0-36.0); MEAN CELL VOLUME 95.1 fl (80-96); MEAN PLT VOLUME 8.4 fl (7.5-11.1); NEUT % 58.5 % (42.8-82.8); PLATELET COUNT 199 K/MM3 (134-434); RBC 4.22 M/mm3 (3.60-5.2); RDW 13.3 % (11.6-15.6); WHITE BLOOD COUNT 8.2 K/mm3 (4.0-10.0)
[2020-06-07 09:48] LABS: CHLORIDE 106 mmol/L (98-107); POTASSIUM 3.5 mmol/L (3.5-5.1); SODIUM 140 mmol/L (136-145)
[2020-06-07 10:09] LABS: ALBUMIN 2.8 g/dl (3.4-5.0); ANION GAP 6 MMOL/L (8-16); BLOOD UREA NITROGEN 6.6 mg/dL (7-18); CALCIUM 8.6 mg/dL (8.5-10.1); CO2 28 mmol/L (21-32); GLUCOSE,RANDOM 103 mg/dL (74-106)
[2020-06-07 10:11] LABS: BILIRUBIN,TOTAL 0.7 mg/dL (0.2-1)
[2020-06-07 10:12] LABS: ALK PHOS 56 U/L (45-117); CREATININE 0.6 mg/dL (0.55-1.3); PHOSPHOROUS 2.3 mg/dL (2.5-4.9); SGOT/AST 19 U/L (15-37)
[2020-06-07 10:14] LABS: TOT PROT 5.5 g/dl (6.4-8.2)
[2020-06-07 10:17] LABS: SGPT/ALT < 6 U/L (13-61)
[2020-06-07] MEDS ORDERED: cefTRIAXone SODIUM 1 GM VIAL ONE ×2 (10:39→10:55)
[2020-06-07] MEDS ORDERED: DEXTROSE 5%-WATER - 50 ML IVPB ONE ×2 (10:39→10:55)
[2020-06-07] MEDS: CEFTRIAXONE 1 GM in DEXTROSE 5%-WATER - 50 ML IVPB SCH (10:57)
[2020-06-07] MEDS: levETIRAcetam 500 MG/5 ML INJECTION VIAL IVPB SCH ×2 (10:59→22:46)
[2020-06-07] MEDS: RAMIPRIL 5 MG CAPSULE PO SCH (10:59)
[2020-06-07] MEDS: metoPROLOL SUCCINATE 25 MG TAB.SR.24H (FP) PO SCH (10:59)
[2020-06-07] MEDS: ASPIRIN 81 MG CHEWABLE TABLETS PO SCH (10:59)
[2020-06-07] MEDS: ATORVASTATIN CA 10 MG TABLET (FP) PO SCH (10:59)
[2020-06-07] MEDS ORDERED: POTASSIUM PHOSPHATE 30 MM in SODIUM CHLORIDE 500 ML IVPB ONE (12:44)
[2020-06-07] MEDS: AZITHROMYCIN IVPB 250 MG in DEXTROSE 5%-WATER - 250 ML IVPB SCH (12:44)
[2020-06-08] MEDS: HEPARIN NA (PORCINE) 5,000 UNITS/ML 1ML VIAL SQ SCH ×2 (05:03→14:29)
[2020-06-08 08:53] LABS: BASO % 0.8 % (0-2.0); EOS % 5.5 % (0-4.5); HEMATOCRIT 38.7 % (32.4-45.2); LYMPH % 21.2 % (8-40); MCH 31.9 pg (25.7-33.7); MCHC 33.7 g/dl (32.0-36.0); MEAN CELL VOLUME 94.6 fl (80-96); MEAN PLT VOLUME 8.6 fl (7.5-11.1); MONO % 9.8 % (3.8-10.2); NEUT % 62.7 % (42.8-82.8); PLATELET COUNT 194 K/MM3 (134-434); RBC 4.09 M/mm3 (3.60-5.2); RDW 13.3 % (11.6-15.6); WHITE BLOOD COUNT 8.7 K/mm3 (4.0-10.0)
[2020-06-08 09:04] LABS: CHLORIDE 106 mmol/L (98-107); POTASSIUM 3.7 mmol/L (3.5-5.1); SODIUM 139 mmol/L (136-145)
[2020-06-08 09:14] LABS: ALBUMIN 2.6 g/dl (3.4-5.0)
[2020-06-08 09:16] LABS: ANION GAP 5 MMOL/L (8-16); BLOOD UREA NITROGEN 10.1 mg/dL (7-18); CALCIUM 8.4 mg/dL (8.5-10.1); CO2 28 mmol/L (21-32)
[2020-06-08 09:17] LABS: CREATININE 0.6 mg/dL (0.55-1.3); GLUCOSE,RANDOM 98 mg/dL (74-106); PHOSPHOROUS 3.1 mg/dL (2.5-4.9); SGOT/AST 17 U/L (15-37); SGPT/ALT 7 U/L (13-61)
[2020-06-08 09:18] LABS: BILIRUBIN,TOTAL 0.5 mg/dL (0.2-1); TOT PROT 5.2 g/dl (6.4-8.2)
[2020-06-08 09:19] LABS: ALK PHOS 55 U/L (45-117)
[2020-06-08] MEDS ORDERED: cefTRIAXone SODIUM 1 GM VIAL ONE (09:55)
[2020-06-08] MEDS ORDERED: DEXTROSE 5%-WATER - 50 ML IVPB ONE (09:55)
[2020-06-08] MEDS: CEFTRIAXONE 1 GM in DEXTROSE 5%-WATER - 50 ML IVPB SCH (10:03)
[2020-06-08] MEDS: levETIRAcetam 500 MG/5 ML INJECTION VIAL IVPB SCH (10:03)
[2020-06-08] MEDS: ASPIRIN 81 MG CHEWABLE TABLETS PO SCH (10:03)
[2020-06-08] MEDS: ATORVASTATIN CA 10 MG TABLET (FP) PO SCH (10:03)
[2020-06-08] MEDS: metoPROLOL SUCCINATE 25 MG TAB.SR.24H (FP) PO SCH (10:03)
[2020-06-08] MEDS: RAMIPRIL 5 MG CAPSULE PO SCH (10:04)
[2020-06-08] MEDS: AZITHROMYCIN IVPB 250 MG in DEXTROSE 5%-WATER - 250 ML IVPB SCH (13:10)
[2020-06-08 14:17] VITALS: BP 153/76; PULSE 101; TEMP 97.8
== END 2020-06-08 16:55 | disposition home or self-care (01) | DRG 100 ==
LOC: JER 09:26 → JERBED 13:37 → J6S 06-06 15:07
PROVIDERS: ADMIT Internal Medicine; ATTEND Internal Medicine
DX: G40.901 Epilepsy, unspecified, not intractable, with status epilepticus (principal); J18.9 Pneumonia, unspecified organism; E87.2 Acidosis; I10 Essential (primary) hypertension; G20 Parkinson's disease; E78.5 Hyperlipidemia, unspecified; G43.109 Migraine with aura, not intractable, without status migrainosus; E83.39 Other disorders of phosphorus metabolism; E87.6 Hypokalemia
CPT/HCPCS: 36415; 36600; 70450-TC; 71045-TC-FY; 80048; 80053; 81003; 82140; 82803; 83605; 83735; 84100; 84443; 84484; 85025; 85027; 85610; 85730; 86850; 86900; 86901; 87040; 87086; 93005; 93010; 97116-GP; 97161-GP; 99291; 99292; C9803; J0131; J1644; U0003

== ENCOUNTER 2022-08-04 14:02 | Emergency (ER) | payer OTHER, MEDICARE ==
[2022-08-04 14:30] VITALS: BMI 26.2
[2022-08-04 15:17] VITALS: RESP 18
[2022-08-04 15:54] LABS: BASO % 0.5 % (0-2.0); EOS % 0.7 % (0-4.5); HEMATOCRIT 44.4 % (32.4-45.2); LYMPH % 11.2 % (8-40); MCH 31.3 pg (25.7-33.7); MCHC 33.8 g/dl (32.0-36.0); MEAN CELL VOLUME 92.5 fl (80-96); MONO % 7.9 % (3.8-10.2); NEUT % 79.7 % (42.8-82.8); PLATELET COUNT 182 10^3/uL (134-434); RDW 13.5 % (11.6-15.6); WHITE BLOOD COUNT 9.3 K/mm3 (4.0-10.0)
[2022-08-04 16:00] LABS: INR 1.03 (0.83-1.09); PROTHROMBIN TIME (PATIENT) 11.9 SEC (9.7-13.0)
[2022-08-04 16:02] LABS: ACTIVATED PTT 28.5 SECONDS (25.2-36.5)
[2022-08-04 16:17] LABS: CALCIUM 9.5 mg/dL (8.5-10.1)
[2022-08-04 16:18] LABS: ALBUMIN 3.7 g/dl (3.4-5.0); BLOOD UREA NITROGEN 17.7 mg/dL (7-18)
[2022-08-04 16:21] LABS: CREATININE 0.8 mg/dL (0.55-1.3); PHOSPHOROUS 2.9 mg/dL (2.5-4.9)
[2022-08-04 16:22] LABS: BILIRUBIN,TOTAL 0.7 mg/dL (0.2-1)
[2022-08-04 16:23] LABS: TOT PROT 6.7 g/dl (6.4-8.2)
[2022-08-04 18:51] LABS: EPI CELLS 11 /uL (0-25.1); HYALINE CASTS 1 /uL (0-3.1); PH,URINE 7.5 (5.0-8.0); URINE APPEARANCE CLEAR; URINE BACTERIA 74 /uL (0-1359); URINE BILIRUBIN NEGATIVE (NEGATIVE); URINE COLOR YELLOW; URINE GLUCOSE (UA) NEGATIVE (NEGATIVE); URINE KETONE NEGATIVE (NEGATIVE); URINE LEUK ESTERASE TRACE (NEGATIVE); URINE NITRITE NEGATIVE (NEGATIVE); URINE PROTEIN 2+ (NEGATIVE); URINE RBC 20 /uL (0-23.9); URINE WBC 74 /uL (0-25.8)
[2022-08-04] MEDS ORDERED: CEFTRIAXONE 1,000 MG in DEXTROSE 5%-WATER - 50 ML IVPB ONE (20:17)
[2022-08-04 20:19] VITALS: BP 180/88; PULSE 81; TEMP 97.8
[2022-08-04] MEDS ORDERED: CEFTRIAXONE 1 GM/50 ML BAG ONE (20:24)
== END 2022-08-04 21:11 | disposition home or self-care (01) ==
LOC: JER 14:02
DX: N39.0 Urinary tract infection, site not specified (principal); R25.1 Tremor, unspecified; Z20.822 Contact with and (suspected) exposure to COVID-19
CPT/HCPCS: 0241U-QW; 36415; 70450-TC; 71045-TC-FY; 80053; 81003; 82962; 83735; 84100; 84484; 85025; 85610; 85730; 87086; 93005; 93010; 99285-25

== ENCOUNTER 2023-04-25 04:31 | Observation (INO) | payer OTHER, MEDICARE ==
[2023-04-25 04:45] VITALS: BMI 25.0
[2023-04-25 05:44] LABS: INR 1.56 (0.83-1.09)
[2023-04-25 05:46] LABS: BASO % 0.8 % (0-2.0); HEMATOCRIT 37.8 % (32.4-45.2); HEMOGLOBIN 12.6 GM/dL (10.7-15.3); LYMPH % 18.6 % (8-40); MCH 31.9 pg (25.7-33.7); MCHC 33.3 g/dl (32.0-36.0); MEAN CELL VOLUME 95.7 fl (80-96); MEAN PLT VOLUME 8.8 fl (7.5-11.1); MONO % 18.9 % (3.8-10.2); NEUT % 60.7 % (42.8-82.8); PLATELET COUNT 164 10^3/uL (134-434); RBC 3.95 M/mm3 (3.60-5.2); RDW 14.4 % (11.6-15.6)
[2023-04-25 05:47] LABS: ACTIVATED PTT 33.1 SECONDS (25.2-36.5)
[2023-04-25 05:55] LABS: POTASSIUM 3.9 mmol/L (3.5-5.1)
[2023-04-25 05:57] LABS: ALBUMIN 2.9 g/dl (3.4-5.0); BLOOD UREA NITROGEN 12.3 mg/dL (7-18); CALCIUM 8.7 mg/dL (8.5-10.1)
[2023-04-25 06:00] LABS: CREATININE 0.7 mg/dL (0.55-1.3)
[2023-04-25 06:02] LABS: BILIRUBIN,TOTAL 0.6 mg/dL (0.2-1); TOT PROT 5.6 g/dl (6.4-8.2)
[2023-04-25 06:05] LABS: N-TERMINAL BNP 432.5 pg/ml (5-450)
[2023-04-25] MEDS ORDERED: AZITHROMYCIN IVPB 500 MG/250 ML BAG IVPB ONE (07:19)
[2023-04-25] MEDS: AZITHROMYCIN IVPB 500 MG in DEXTROSE 5%-WATER - 250 ML IVPB ONE (07:24)
[2023-04-25] MEDS ORDERED: CEFTRIAXONE 1 GM/50 ML BAG ONE (07:58)
[2023-04-25 08:20] LABS: URINE APPEARANCE CLEAR; URINE BILIRUBIN NEGATIVE (NEGATIVE); URINE COLOR YELLOW; URINE GLUCOSE (UA) NEGATIVE (NEGATIVE); URINE KETONE NEGATIVE (NEGATIVE); URINE LEUK ESTERASE TRACE (NEGATIVE); URINE NITRITE NEGATIVE (NEGATIVE); URINE PROTEIN NEGATIVE (NEGATIVE); URINE UROBILINOGEN 0.2 mg/dL (0.2-1.0)
[2023-04-25 08:21] LABS: HYALINE CASTS 0.12 /uL (0-3.1); URINE BACTERIA 112.4 /uL (0-1359); URINE WBC 23.1 /uL (0-25.8)
[2023-04-25] MEDS ORDERED: APIXABAN 5 MG TABLET ONE (08:54)
[2023-04-25] MEDS ORDERED: RAMIPRIL 5 MG CAPSULE ONE ×2 (08:54)
[2023-04-25] MEDS ORDERED: metoPROLOL SUCCINATE 25 MG TAB.SR.24H (FP) PO ONE (08:54)
[2023-04-25] MEDS ORDERED: levETIRAcetam 500 MG TABLET (FP) PO ONE (08:54)
[2023-04-25] MEDS: levETIRAcetam 500 MG TABLET (FP) PO SCH ×2 (09:11→22:03)
[2023-04-25] MEDS: APIXABAN 5 MG TABLET PO SCH ×2 (09:11→22:03)
[2023-04-25] MEDS: RAMIPRIL 5 MG CAPSULE PO SCH (09:11)
[2023-04-25] MEDS: metoPROLOL SUCCINATE 25 MG TAB.SR.24H (FP) PO SCH (09:11)
[2023-04-25] MEDS ORDERED: RIVASTIGMINE TARTRATE 3 MG CAPSULE PO SCH (10:00)
[2023-04-25] MEDS: RIVASTIGMINE TARTRATE 1.5 MG CAPSULE PO SCH ×2 (18:36→23:54)
[2023-04-25] MEDS ORDERED: MIRTAZAPINE 15 MG TABLET (FP) ONE (21:12)
[2023-04-25] MEDS: ATORVASTATIN CA 10 MG TABLET (FP) PO SCH (22:03)
[2023-04-25] MEDS: MIRTAZAPINE 30 MG TABLET PO SCH (22:03)
[2023-04-26 08:42] LABS: POTASSIUM 3.3 mmol/L (3.5-5.1)
[2023-04-26 08:43] LABS: CALCIUM 8.7 mg/dL (8.5-10.1)
[2023-04-26 08:44] LABS: BLOOD UREA NITROGEN 11.8 mg/dL (7-18)
[2023-04-26 08:47] LABS: CREATININE 0.7 mg/dL (0.55-1.3)
[2023-04-26 08:49] LABS: BASO % 0.8 % (0-2.0); EOS % 1.3 % (0-4.5); HEMATOCRIT 42.1 % (32.4-45.2); HEMOGLOBIN 13.8 GM/dL (10.7-15.3); LYMPH % 19.3 % (8-40); MCH 31.4 pg (25.7-33.7); MCHC 32.8 g/dl (32.0-36.0); MEAN CELL VOLUME 95.6 fl (80-96); MEAN PLT VOLUME 8.8 fl (7.5-11.1); MONO % 14.6 % (3.8-10.2); PLATELET COUNT 162 10^3/uL (134-434); RDW 14.4 % (11.6-15.6); WHITE BLOOD COUNT 4.9 K/mm3 (4.0-10.0)
[2023-04-26] MEDS: SODIUM CHLORIDE 1,000 ML IV SCH (09:04)
[2023-04-26] MEDS: RAMIPRIL 5 MG CAPSULE PO SCH (09:35)
[2023-04-26] MEDS: CEFTRIAXONE 1 GM in DEXTROSE 5%-WATER - 50 ML IVPB SCH (09:35)
[2023-04-26] MEDS: metoPROLOL SUCCINATE 25 MG TAB.SR.24H (FP) PO SCH (09:35)
[2023-04-26] MEDS: APIXABAN 5 MG TABLET PO SCH ×2 (09:35→22:57)
[2023-04-26] MEDS: levETIRAcetam 500 MG TABLET (FP) PO SCH ×2 (09:35→22:57)
[2023-04-26] MEDS: RIVASTIGMINE TARTRATE 1.5 MG CAPSULE PO SCH (09:41)
[2023-04-26] MEDS: AZITHROMYCIN IVPB 500 MG in DEXTROSE 5%-WATER - 250 ML IVPB ONE (11:23)
[2023-04-26] MEDS: AZITHROMYCIN IVPB 500 MG/250 ML BAG IVPB SCH (11:24)
[2023-04-26] MEDS ORDERED: MIRTAZAPINE 15 MG TABLET (FP) ONE (22:24)
[2023-04-26] MEDS: MIRTAZAPINE 30 MG TABLET PO SCH (22:57)
[2023-04-26] MEDS: ATORVASTATIN CA 10 MG TABLET (FP) PO SCH (22:57)
[2023-04-27] MEDS: SODIUM CHLORIDE 1,000 ML IV SCH (10:39)
[2023-04-27] MEDS: CEFTRIAXONE 1 GM in DEXTROSE 5%-WATER - 50 ML IVPB SCH (10:48)
[2023-04-27] MEDS: levETIRAcetam 500 MG TABLET (FP) PO SCH ×2 (10:48→21:58)
[2023-04-27] MEDS: RAMIPRIL 5 MG CAPSULE PO SCH (10:48)
[2023-04-27] MEDS: APIXABAN 5 MG TABLET PO SCH ×2 (10:48→21:58)
[2023-04-27] MEDS: AZITHROMYCIN IVPB 500 MG/250 ML BAG IVPB SCH (10:48)
[2023-04-27] MEDS: metoPROLOL SUCCINATE 25 MG TAB.SR.24H (FP) PO SCH (10:49)
[2023-04-27] MEDS: POTASSIUM CHLORIDE TABS 20 MEQ TABLET.ER (FP) PO SCH ×2 (14:38→21:59)
[2023-04-27] MEDS ORDERED: ACETAMINOPHEN 325 MG TABLET (FP) PO PRN (15:13)
[2023-04-27 17:44] VITALS: RESP 18
[2023-04-27] MEDS ORDERED: MIRTAZAPINE 15 MG TABLET (FP) ONE (21:01)
[2023-04-27] MEDS: ATORVASTATIN CA 10 MG TABLET (FP) PO SCH (21:58)
[2023-04-27] MEDS: MIRTAZAPINE 30 MG TABLET PO SCH (21:59)
[2023-04-28] MEDS: levETIRAcetam 500 MG TABLET (FP) PO SCH (10:08)
[2023-04-28] MEDS: APIXABAN 5 MG TABLET PO SCH (10:08)
[2023-04-28] MEDS: CEFTRIAXONE 1 GM in DEXTROSE 5%-WATER - 50 ML IVPB SCH (10:08)
[2023-04-28] MEDS: RAMIPRIL 5 MG CAPSULE PO SCH (10:08)
[2023-04-28] MEDS: AZITHROMYCIN IVPB 500 MG/250 ML BAG IVPB SCH (10:09)
[2023-04-28] MEDS: metoPROLOL SUCCINATE 25 MG TAB.SR.24H (FP) PO SCH (10:09)
[2023-04-28 13:11] LABS: CHLORIDE 97 mmol/L (98-107); SODIUM 131 mmol/L (136-145)
[2023-04-28 13:14] LABS: ANION GAP 5 mmol/L (4-13); BLOOD UREA NITROGEN 13.6 mg/dL (7-18); CALCIUM 8.7 mg/dL (8.5-10.1); CO2 30 mmol/L (21-32); GLUCOSE,RANDOM 130 mg/dL (74-106)
[2023-04-28 13:15] LABS: ALBUMIN 2.6 g/dl (3.4-5.0)
[2023-04-28 13:17] LABS: SGPT/ALT < 6 U/L (13-61)
[2023-04-28 13:18] LABS: CREATININE 0.7 mg/dL (0.55-1.3); SGOT/AST 19 U/L (15-37)
[2023-04-28 13:19] LABS: BILIRUBIN,TOTAL 0.4 mg/dL (0.2-1); TOT PROT 5.7 g/dl (6.4-8.2)
[2023-04-28 13:20] LABS: ALK PHOS 107 U/L (45-117)
[2023-04-28 14:44] VITALS: BP 134/69; PULSE 80; TEMP 98.3
[2023-04-28] MEDS ORDERED: AMOX TR/POT CLAV 500MG/125MG TABLETS (FP) PO SCH (17:30)
== END 2023-04-28 15:59 | disposition home or self-care (01) ==
LOC: JER 04:31 → UNDOADMOB 07:04 → INTOOBSV 07:04 → JERBED 07:04 → J8W 11:15
PROVIDERS: ADMIT Internal Medicine; ATTEND Nurse Practitioner Family
DX: J18.9 Pneumonia, unspecified organism (principal); G20.A1 Parkinson's disease without dyskinesia, without mention of fluctuations; Z86.73 Personal history of transient ischemic attack (TIA), and cerebral infarction without residual deficits; H53.2 Diplopia; G40.909 Epilepsy, unspecified, not intractable, without status epilepticus; J40 Bronchitis, not specified as acute or chronic; R09.3 Abnormal sputum; I10 Essential (primary) hypertension; Z96.641 Presence of right artificial hip joint; Z87.891 Personal history of nicotine dependence; Z88.2 Allergy status to sulfonamides
CPT/HCPCS: 0241U-QW; 36415; 71045-TC-FY; 71250-TC; 80048; 80053; 81003; 83880; 84484; 85025; 85610; 85730; 87086; 87899; 93005; 93010; 94010; 96365; 96366; 96367; 96375; 97116-GP; 97161-GP; 99285-25; G0378

== ENCOUNTER 2023-11-12 20:57 | Emergency (ER) | payer OTHER, MEDICARE ==
[2023-11-12 21:25] VITALS: BP 124/50; PULSE 70; RESP 19; TEMP 97.6; BMI 25.7
== END 2023-11-12 23:00 | disposition home or self-care (01) ==
LOC: SUPCPDRO 20:57 → FER 20:57
DX: G43.109 Migraine with aura, not intractable, without status migrainosus (principal)
CPT/HCPCS: 70450-TC; 99284-25